=== PATIENT | female | born 1985 | race Caucasian/White ===

== ENCOUNTER 2019-04-19 11:02 | Emergency (ER) | payer OTHER ==
[2019-04-19 11:10] VITALS: BMI 34.9
--- NOTE | 2019-04-19 11:23 | PDOC ---
History of Present Illness - General History Source: Patient, Cleaning Matron Used (serbian int #[id number]) Exam Limitations: Clinical Condition - History of Present Illness Initial Comments: 04/19/19 11:50 Patient with past medical history of hypertension on nifedipine and left oophorectomy due to left ovarian cyst 5 years ago presented with complaint of right lower quadrant and epigastric pain which has been persistent since yesterday with a positive test. Patient reported LMP February 06 which put her 6 weeks . Denies vaginal bleeding, nausea, vomiting, dizziness , fever or chills. Patient did not take anything for symptoms. Denies any other symptoms Is this a multiple visit Asthma Patient?: No Timing/Duration: other (2 days) <Mikhail Richardson - Last Filed: 04/19/19 14:54> <Jeffry Cline - Last Filed: 04/19/19 16:29> - General Chief Complaint: Pain Stated Complaint: 6 WK PREG / ABD PAIN Time Seen by Provider: 04/19/19 11:15 Past History - Past Medical History COPD: No HTN: Yes - Psycho Social/Smoking Cessation Hx Smoking History: Never smoked <Mikhail Richardson - Last Filed: 04/19/19 14:54> <Jeffry Cline - Last Filed: 04/19/19 16:29> - Past Medical History Allergies/Adverse Reactions: Allergies Allergy/AdvReac Type Severity Reaction Status Date / Time No Known Allergies Allergy Verified 04/19/19 11:06 Home Medications: Ambulatory Orders Nifedipine [Procardia Xl] 30 mg PO DAILY 04/19/19 Prenat 115/Iron Fum/Folic/Dss [ 19 Tablet] 1 each PO DAILY 04/19/19 Review of Systems - Review of Systems Able to Perform ROS?: Yes Is the patient limited Czech proficient: No Constitutional: No: Fever, Malaise, Weakness HEENTM: No: Symptoms Reported, See HPI, Eye Pain, Blurred Vision, Tearing, Recent change in vision, Double Vision, Cataracts, Ear Pain, Ocular Prothesis, Ear Discharge, Nose Pain, Nose Congestion, Tinnitus, Nose Bleeding, Hearing Loss , Throat Pain, Throat Swelling, Mouth Pain, Dental Problems, Difficulty Swallowing, Mouth Swelling, Other Respiratory: No: Symptoms reported, See HPI, Cough, Orthopnea, Shortness of Breath, SOB with Exertion, SOB at Rest, Stridor, Wheezing, Productive cough, Hemoptysis, Other Cardiac (ROS): No: Symptoms Reported, See HPI, Chest Pain, Edema, Irregular Heart Rate, Lightheadedness, Palpitations, Syncope, Chest Tightness, Other ABD/GI: Yes: Symptoms Reported, See HPI, Abdominal cramping (RUQ/RLQ/ epigastric tenderness). No: Abdominal Distended, Abd. Pain w/ defecation, Blood Streaked Bowels, Constipated, Difficulty Swallowing, Nausea, Poor Appetite , Poor Fluid Intake, Rectal Bleeding, Vomiting, Indigestion : No: Burning, Dysuria, Discharge, Frequency, Flank Pain, Pain, Urgency Musculoskeletal: No: Symptoms Reported Integumentary: No: Symptoms Reported Neurological: No: Symptoms reported, Dizziness All Other Systems: Reviewed and Negative <Mikhail Richardson - Last Filed: 04/19/19 14:54> *Physical Exam - Vital Signs Last Vital Signs Temp Pulse Resp BP Pulse Ox 98.5 F 106 H 18 124/78 100 04/19/19 11:06 04/19/19 11:06 04/19/19 11:06 04/19/19 11:06 04/19/19 11:06 - Physical Exam General Appearance: Yes: Nourished, Appropriately Dressed. No: Apparent Distress HEENT: positive: HARIS, Normal ENT Inspection Neck: positive: Supple Respiratory/Chest: positive: Lungs Clear, Normal Breath Sounds. negative: Chest Tender, Respiratory Distress, Accessory Muscle Use Cardiovascular: positive: Regular Rhythm, Regular Rate Female Pelvic Exam: positive: normal external exam, cervical os closed, normal adnexa, discharge, other (small amount of yellow non-malodorous discharge in vaginal vault. no blood in vault). negative: lesions, adnexal tenderness, vaginal bleeding Gastrointestinal/Abdominal: positive: Normal Bowel Sounds, Tender (mild ttp to RLQ, right pelvic area and epigastric areas), Flat, Soft. negative: Organomegaly, Distended, Guarding, Rebound, Hernia, Mass, Hepatomegaly, Spleenomegaly Musculoskeletal: positive: Normal Inspection. negative: CVA Tenderness Extremity: positive: Normal Inspection, Normal Range of Motion Integumentary: positive: Normal Color Neurologic: positive: Fully Oriented, Alert, Normal Mood/Affect, Normal Response <Mikhail Richardson - Last Filed: 04/19/19 14:54> - Vital Signs Last Vital Signs Temp Pulse Resp BP Pulse Ox 98.2 F 88 19 122/78 98 04/19/19 15:02 04/19/19 15:02 04/19/19 15:02 04/19/19 15:02 04/19/19 15:02 <Jeffry Cline - Last Filed: 04/19/19 16:29> ED Treatment Course - LABORATORY CBC & Chemistry Diagram: 04/19/19 11:34 04/19/19 11:34 <DebraMikhail - Last Filed: 04/19/19 14:54> - LABORATORY CBC & Chemistry Diagram: 04/19/19 11:34 04/19/19 11:34 - ADDITIONAL ORDERS Additional order review: Laboratory Results 04/19/19 04/19/19 04/19/19 13:25 11:34 11:34 Sodium Potassium Chloride Carbon Dioxide Anion Gap BUN Creatinine Est GFR (CKD-EPI)AfAm Est GFR (CKD-EPI)NonAf Random Glucose Calcium Total Bilirubin AST ALT Alkaline Phosphatase Total Protein Albumin Lipase 86 Beta HCG, Quant Urine Color Yellow Urine Appearance Clear Urine pH >= 9.0 H Ur Specific Atkins 1.020 Urine Protein Trace Urine Glucose (UA) Negative Urine Ketones Negative Urine Blood Negative Urine Nitrite Negative Urine Bilirubin Negative Urine Urobilinogen 0.2 Ur Leukocyte Esterase Negative Blood Type O POSITIVE Antibody Screen Negative 04/19/19 04/19/19 11:34 11:34 Sodium 136 Potassium 4.0 Chloride 105 Carbon Dioxide 24 Anion Gap 7 L BUN 3.6 L Creatinine 0.6 Est GFR (CKD-EPI)AfAm 139.78 Est GFR (CKD-EPI)NonAf 120.61 Random Glucose 118 H Calcium 8.9 Total Bilirubin 0.3 AST 16 ALT 19 Alkaline Phosphatase 59 Total Protein 6.8 Albumin 3.6 Lipase Beta HCG, Quant 91681.1 Urine Color Urine Appearance Urine pH Ur Specific Atkins Urine Protein Urine Glucose (UA) Urine Ketones Urine Blood Urine Nitrite Urine Bilirubin Urine Urobilinogen Ur Leukocyte Esterase Blood Type Antibody Screen 04/19/19 12:00 Gram Stain - Final Cervix 04/19/19 11:34 RBC 4.17 MCV 92.2 MCHC 33.5 RDW 13.6 MPV 9.3 Neutrophils % 74.3 Lymphocytes % 18.9 Monocytes % 6.1 Eosinophils % 0.3 Basophils % 0.4 - Medications Given in the ED: ED Medications Discontinued Medications Generic Name Dose Route Start Last Admin Trade Name Jalen PRN Reason Stop Dose Admin Acetaminophen 1,000 mg 04/19/19 14:07 04/19/19 14:25 Ofirmev Injection - IVPB 04/19/19 14:08 1,000 mg ONCE ONE Administration Sodium Chloride 1,000 mls @ 1,000 mls/hr 04/19/19 12:57 04/19/19 13:50 Normal Saline - IV 04/19/19 13:56 1,000 mls/hr ASDIR STA Administration <Jeffry Cline - Last Filed: 04/19/19 16:29> Medical Decision Making - Medical Decision Making 04/19/19 11:52 Patient with past medical history of hypertension on nifedipine and left oophorectomy due to left ovarian cyst 5 years ago presented with complaint of right lower quadrant and epigastric pain which has been persistent since yesterday with a positive test. Patient reported LMP February 06 which put her 6 weeks . Denies vaginal bleeding, nausea, vomiting, dizziness , fever or chills. Patient did not take anything for symptoms. Denies any other symptoms. Exam significant for mild tenderness to epigastric and right lower quadrant region without guarding or rebound. Small amount of yellow non-malodorous discharge in vaginal vault with no cervical motion tenderness. No vaginal bleeding or blood in vaginal vault. Cervical os closed. Symptoms likely cramping from versus ectopic versus appendectomy. CBC, CMP, lipase and beta-hCG labs ordered. UA urine culture lab ordered. Pelvic ultrasound ordered to rule out ectopic . Abdominal ultrasound ordered to rule appendicitis. genital Cx of vaginal d/c sent. Treat based on lab and imaging results 04/19/19 12:43 Beta-hCG is 43,000. Chemistry lab are unremarkable. CBC with no significant pathology. Patient pending abdominal ultrasound 04/19/19 13:26 Transvaginal ultrasound shows IUP with crown-rump length of 0.57 cm consistent with 6.3 weeks gestational age, no heart rate seen on ultrasound. Ultrasound results consistent with demise. Abdominal ultrasound still pending reading 04/19/19 14:54 Abdominal ultrasound shows no appendicitis. Ultrasound result discussed with patient and advised of failed . Patient advised to follow-up with OB in 48 hours for repeat beta-hCG or come back to emergency room for repeat blood work. Plan discussed with patient via chief technology officer. Patient voiced understanding of plan and will follow-up with her OB. Patient stable for discharge <Mikhail Richardson - Last Filed: 04/19/19 14:54> - Medical Decision Making 04/19/19 16:28 I reviewed the case of the mid-level practitioner and was available for consultation while in the emergency department <MarlynJeffry - Last Filed: 04/19/19 16:29> Discharge - Discharge Information Problems reviewed: Yes - Admission No <Mikhail Richardson - Last Filed: 04/19/19 14:54> <Jeffry Cline - Last Filed: 04/19/19 16:29> - Discharge Information Clinical Impression/Diagnosis: Missed with demise before 20 completed weeks of gestation Condition: Stable Disposition: HOME - Follow up/Referral Referrals: Johnny Skelton MD [Primary Care Provider] - - Patient Discharge Instructions Additional Instructions: Your labwork was normal. Your transvaginal ultrasound shows intrauterine of 6 weeks but no heart rate was seen on ultrasound as discussed. Follow-up with your OB in 2-3 days for repeat hormones as discussed to follow-up with . no appendicitis on ultrasound. Take Tylenol as needed for pain. Come back to ER for repeat bloodwork if unable to follow-up with your [facility]. Tu trabajo de laboratorio fue normal. Centeno ultrasonido transvaginal muestra un embarazo intrauterino de 6 semanas, silvino no se observ frecuencia cardaca en el ultrasonido [place] se discuti. Fox un seguimiento con centeno OB en 2-3 mclean para repetir las hormonas del embarazo [place] se discuti para el seguimiento con el embarazo. sin apendicitis en la ecografa. Dryden Tylenol segn sea necesario para el dolor. Regrese a la domenica de emergencias para repetir los anlisis de criselda si no puede hacer un seguimiento con centeno obstetra / gineclogo.
[2019-04-19 11:51] LABS: BASO % 0.4 % (0-2.0); EOS % 0.3 % (0-4.5); HEMATOCRIT 38.4 % (32.4-45.2); HEMOGLOBIN 12.9 GM/dL (10.7-15.3); LYMPH % 18.9 % (8-40); MCH 30.9 pg (25.7-33.7); MCHC 33.5 g/dl (32.0-36.0); MEAN CELL VOLUME 92.2 fl (80-96); MEAN PLT VOLUME 9.3 fl (7.5-11.1); MONO % 6.1 % (3.8-10.2); NEUT % 74.3 % (42.8-82.8); PLATELET COUNT 230 K/MM3 (134-434); RBC 4.17 M/mm3 (3.60-5.2); RDW 13.6 % (11.6-15.6); WHITE BLOOD COUNT 11.7 K/mm3 (4.0-10.0)
[2019-04-19 12:20] LABS: ALBUMIN 3.6 g/dl (3.4-5.0); BILIRUBIN,TOTAL 0.3 mg/dL (0.2-1); BLOOD UREA NITROGEN 3.6 mg/dL (7-18); CALCIUM 8.9 mg/dL (8.5-10.1); CREATININE 0.6 mg/dL (0.55-1.3); TOT PROT 6.8 g/dl (6.4-8.2)
[2019-04-19] MEDS ORDERED: SODIUM CHLORIDE 1,000 ML IV STA (12:57)
[2019-04-19 13:48] LABS: PH,URINE >= 9.0 (5.0-8.0); URINE APPEARANCE CLEAR; URINE BILIRUBIN NEGATIVE (NEGATIVE); URINE COLOR YELLOW; URINE GLUCOSE (UA) NEGATIVE (NEGATIVE); URINE KETONE NEGATIVE (NEGATIVE); URINE LEUK ESTERASE NEGATIVE (NEGATIVE); URINE NITRITE NEGATIVE (NEGATIVE); URINE PROTEIN TRACE (NEGATIVE); URINE UROBILINOGEN 0.2 mg/dL (0.2-1.0)
[2019-04-19] MEDS ORDERED: ACETAMINOPHEN 1000 MG/100 ML VIAL (NON FORMULARY) IVPB ONE (14:07)
[2019-04-19] MEDS ORDERED: ACETAMINOPHEN INJECTION 100 ML IVPB ONE (14:26)
[2019-04-19 15:04] VITALS: BP 122/78; PULSE 88; TEMP 98.2
== END 2019-04-19 15:04 | disposition home or self-care (01) ==
LOC: JER 11:02
PROC: 3E0337Z Introduction of Electrolytic and Water Balance Substance into Peripheral Vein, Percutaneous Approach (ICD-10-PCS; principal; 2019-04-19)
PROC: 3E033NZ Introduction of Analgesics, Hypnotics, Sedatives into Peripheral Vein, Percutaneous Approach (ICD-10-PCS; 2019-04-19)
DX: O26.891 Other specified pregnancy related conditions, first trimester (principal); O02.1 Missed abortion; O10.911 Unspecified pre-existing hypertension complicating pregnancy, first trimester; Z3A.01 Less than 8 weeks gestation of pregnancy
CPT/HCPCS: 36415; 76817-TC; 76856-TC; 80053; 81003; 83690; 84702; 85025; 86850; 86900; 86901; 87070; 87086; 87205; 96361; 96374; 99284-25; J0131; J7030

== ENCOUNTER 2020-08-26 01:48 | Emergency (ER) | payer OTHER ==
[2020-08-26 02:17] VITALS: BP 156/90; PULSE 92; TEMP 98.4; BMI 32.3
[2020-08-26] MEDS ORDERED: MAG HYDROX/AL HYDROX/SIMETH 30 ML UNIT-DOSE CUP PO ONE (02:23)
[2020-08-26] MEDS ORDERED: FAMOTIDINE 20 MG/50 ML IVPB 20 MG/50 ML MG IVPB ONE ×2 (02:23→02:55)
[2020-08-26] MEDS ORDERED: MAG HYDROX/AL HYDROX/SIMETH 30 ML UNIT-DOSE CUP ONE (02:55)
[2020-08-26 02:58] LABS: BASO % 0.6 % (0-2.0); EOS % 0.5 % (0-4.5); HEMATOCRIT 44.6 % (32.4-45.2); HEMOGLOBIN 14.7 GM/dL (10.7-15.3); LYMPH % 31.1 % (8-40); MCH 30.7 pg (25.7-33.7); MCHC 32.9 g/dl (32.0-36.0); MEAN CELL VOLUME 93.1 fl (80-96); MEAN PLT VOLUME 10.5 fl (7.5-11.1); NEUT % 56.8 % (42.8-82.8); PLATELET COUNT 168 K/MM3 (134-434); RBC 4.79 M/mm3 (3.60-5.2); RDW 13.5 % (11.6-15.6); WHITE BLOOD COUNT 6.3 K/mm3 (4.0-10.0)
[2020-08-26 03:09] LABS: PROTHROMBIN TIME (PATIENT) 12.3 SEC (9.7-13.0)
[2020-08-26 03:11] LABS: ACTIVATED PTT 38.7 SECONDS (25.2-36.5)
[2020-08-26 03:17] LABS: CHLORIDE 107 mmol/L (98-107); POTASSIUM 4.4 mmol/L (3.5-5.1); SODIUM 140 mmol/L (136-145)
[2020-08-26 03:19] LABS: CALCIUM 8.5 mg/dL (8.5-10.1)
[2020-08-26 03:20] LABS: ALBUMIN 4.1 g/dl (3.4-5.0); ANION GAP 5 MMOL/L (8-16); BLOOD UREA NITROGEN 6.6 mg/dL (7-18); CO2 28 mmol/L (21-32); GLUCOSE,RANDOM 108 mg/dL (74-106)
[2020-08-26 03:23] LABS: CREATININE 0.6 mg/dL (0.55-1.3); SGOT/AST 25 U/L (15-37); SGPT/ALT 40 U/L (13-61)
[2020-08-26 03:24] LABS: BILIRUBIN,TOTAL 0.3 mg/dL (0.2-1); TOT PROT 7.5 g/dl (6.4-8.2)
[2020-08-26 03:26] LABS: ALK PHOS 70 U/L (45-117)
== END 2020-08-26 05:05 | disposition home or self-care (01) ==
LOC: JER 01:48
PROC: 3E033NZ Introduction of Analgesics, Hypnotics, Sedatives into Peripheral Vein, Percutaneous Approach (ICD-10-PCS; principal; 2020-08-26)
DX: R07.89 Other chest pain (principal)
CPT/HCPCS: 36415; 71045-TC-FY; 80053; 83690; 84484; 85025; 85379; 85610; 85730; 93005; 93010; 99285-25

== ENCOUNTER 2020-12-14 13:27 | Emergency (ER) | payer OTHER ==
[2020-12-14 13:44] VITALS: BP 136/77; PULSE 88; TEMP 98; BMI 33.1
[2020-12-14] MEDS ORDERED: KETOROLAC TROMETHAMINE 30 MG/1 ML VIAL IM ONE (14:11)
[2020-12-14] MEDS ORDERED: KETOROLAC TROMETHAMINE 30 MG/1 ML VIAL ONE (14:12)
== END 2020-12-14 14:24 | disposition home or self-care (01) ==
LOC: JER 13:27 → JERFT 13:27
PROC: 3E0233Z Introduction of Anti-inflammatory into Muscle, Percutaneous Approach (ICD-10-PCS; principal; 2020-12-14)
DX: S76.011A Strain of muscle, fascia and tendon of right hip, initial encounter (principal)
CPT/HCPCS: 99284-25

== ENCOUNTER 2021-02-10 14:32 | Emergency (ER) | payer OTHER ==
[2021-02-10 14:48] VITALS: BP 119/81; PULSE 99; TEMP 98; BMI 31.6
== END 2021-02-10 15:35 | disposition home or self-care (01) ==
LOC: JER 14:32 → JERFT 14:32
DX: H11.31 Conjunctival hemorrhage, right eye (principal)
CPT/HCPCS: 99282-25

== ENCOUNTER 2021-03-02 20:33 | Emergency (ER) | payer OTHER ==
[2021-03-02 21:38] VITALS: BP 148/95; PULSE 93; TEMP 98.5; BMI 32.3
[2021-03-02 22:51] LABS: BASO % 0.3 % (0-2.0); EOS % 0.4 % (0-4.5); HEMATOCRIT 37.7 % (32.4-45.2); HEMOGLOBIN 12.8 GM/dL (10.7-15.3); LYMPH % 19.9 % (8-40); MCH 30.7 pg (25.7-33.7); MCHC 33.8 g/dl (32.0-36.0); MEAN CELL VOLUME 90.8 fl (80-96); MEAN PLT VOLUME 9.3 fl (7.5-11.1); MONO % 8.3 % (3.8-10.2); NEUT % 71.1 % (42.8-82.8); PLATELET COUNT 211 10^3/uL (134-434); RBC 4.15 M/mm3 (3.60-5.2); RDW 13.1 % (11.6-15.6); WHITE BLOOD COUNT 11.8 K/mm3 (4.0-10.0)
[2021-03-02 22:53] LABS: URINE APPEARANCE CLEAR; URINE BILIRUBIN NEGATIVE (NEGATIVE); URINE COLOR YELLOW; URINE GLUCOSE (UA) NEGATIVE (NEGATIVE); URINE KETONE NEGATIVE (NEGATIVE); URINE LEUK ESTERASE NEGATIVE (NEGATIVE); URINE NITRITE NEGATIVE (NEGATIVE); URINE PROTEIN NEGATIVE (NEGATIVE); URINE UROBILINOGEN 0.2 mg/dL (0.2-1.0)
[2021-03-02 23:11] LABS: BLOOD UREA NITROGEN 8.2 mg/dL (7-18); CALCIUM 8.6 mg/dL (8.5-10.1)
[2021-03-02 23:15] LABS: CREATININE 0.7 mg/dL (0.55-1.3)
== END 2021-03-03 02:20 | disposition home or self-care (01) ==
LOC: JER 20:33
DX: O26.851 Spotting complicating pregnancy, first trimester (principal); O02.0 Blighted ovum and nonhydatidiform mole; Z3A.01 Less than 8 weeks gestation of pregnancy
CPT/HCPCS: 36415; 76817-TC; 80048; 81003; 84702; 85025; 99284-25

== ENCOUNTER 2021-11-29 13:56 | Emergency (ER) | payer OTHER ==
[2021-11-29 14:26] VITALS: TEMP 98.6; BMI 32.3
[2021-11-29 16:41] LABS: HCG,QUALITATIVE URINE Positive
[2021-11-29 16:42] LABS: PH,URINE 8.5 (5.0-8.0); URINE APPEARANCE CLEAR; URINE BILIRUBIN NEGATIVE (NEGATIVE); URINE COLOR YELLOW; URINE GLUCOSE (UA) NEGATIVE (NEGATIVE); URINE KETONE NEGATIVE (NEGATIVE); URINE LEUK ESTERASE NEGATIVE (NEGATIVE); URINE NITRITE NEGATIVE (NEGATIVE); URINE PROTEIN NEGATIVE (NEGATIVE); URINE UROBILINOGEN 0.2 mg/dL (0.2-1.0)
[2021-11-29] MEDS ORDERED: ACETAMINOPHEN 325 MG TABLET (FP) PO ONE (16:42)
[2021-11-29] MEDS ORDERED: ACETAMINOPHEN 325 MG TABLET (FP) ONE (17:06)
[2021-11-29 17:50] LABS: BASO % 0.2 % (0-2.0); HEMATOCRIT 40.4 % (32.4-45.2); HEMOGLOBIN 13.3 GM/dL (10.7-15.3); LYMPH % 4.3 % (8-40); MCH 30.2 pg (25.7-33.7); MCHC 32.8 g/dl (32.0-36.0); MEAN CELL VOLUME 92.1 fl (80-96); MEAN PLT VOLUME 9.2 fl (7.5-11.1); MONO % 7.7 % (3.8-10.2); NEUT % 87.8 % (42.8-82.8); PLATELET COUNT 228 10^3/uL (134-434); RBC 4.39 M/mm3 (3.60-5.2); RDW 13.1 % (11.6-15.6); WHITE BLOOD COUNT 13.2 K/mm3 (4.0-10.0)
[2021-11-29 18:10] LABS: ALBUMIN 4.2 g/dl (3.4-5.0); BLOOD UREA NITROGEN 5.8 mg/dL (7-18); CALCIUM 8.9 mg/dL (8.5-10.1)
[2021-11-29 18:13] LABS: CREATININE 0.6 mg/dL (0.55-1.3)
[2021-11-29 18:15] LABS: BILIRUBIN,TOTAL 0.4 mg/dL (0.2-1); TOT PROT 7.6 g/dl (6.4-8.2)
[2021-11-29 21:02] VITALS: BP 120/79; PULSE 76
== END 2021-11-29 21:01 | disposition home or self-care (01) ==
LOC: JERFT 13:56
DX: R10.30 Lower abdominal pain, unspecified (principal)
CPT/HCPCS: 36415; 76817-TC; 80053; 81003; 84702; 84703; 85025; 86850; 86900; 86901; 87070; 87077; 87086; 87205; 99284-25

== ENCOUNTER 2021-11-30 18:50 | Emergency (ER) | payer OTHER ==
[2021-11-30 19:10] VITALS: TEMP 98.1; BMI 33.7
[2021-12-01 07:40] VITALS: BP 123/78; PULSE 90
== END 2021-12-01 01:35 | disposition home or self-care (01) ==
LOC: JER 18:50
DX: O26.899 Other specified pregnancy related conditions, unspecified trimester (principal); R10.84 Generalized abdominal pain; Z3A.00 Weeks of gestation of pregnancy not specified
CPT/HCPCS: 36415; 76817-TC; 84702; 99284-25

== ENCOUNTER 2022-05-29 13:23 | Emergency (ER) | payer OTHER ==
[2022-05-29 13:43] VITALS: BMI 22.4
[2022-05-29 15:55] LABS: BASO % 0.3 % (0-2.0); EOS % 0.2 % (0-4.5); HEMATOCRIT 40.7 % (32.4-45.2); HEMOGLOBIN 13.3 GM/dL (10.7-15.3); LYMPH % 23.7 % (8-40); MCHC 32.5 g/dl (32.0-36.0); MEAN CELL VOLUME 92.1 fl (80-96); MEAN PLT VOLUME 9.2 fl (7.5-11.1); MONO % 6.6 % (3.8-10.2); NEUT % 69.2 % (42.8-82.8); PLATELET COUNT 267 10^3/uL (134-434); RBC 4.42 M/mm3 (3.60-5.2); WHITE BLOOD COUNT 12.6 K/mm3 (4.0-10.0)
[2022-05-29 16:17] LABS: CALCIUM 9.1 mg/dL (8.5-10.1)
[2022-05-29 16:19] LABS: ALBUMIN 3.9 g/dl (3.4-5.0); BLOOD UREA NITROGEN 6.3 mg/dL (7-18)
[2022-05-29 16:22] LABS: CREATININE 0.6 mg/dL (0.55-1.3)
[2022-05-29 16:23] LABS: BILIRUBIN,TOTAL 0.4 mg/dL (0.2-1); TOT PROT 7.1 g/dl (6.4-8.2)
[2022-05-29 16:52] VITALS: BP 148/67; PULSE 83; RESP 16; TEMP 98
== END 2022-05-29 17:30 | disposition home or self-care (01) ==
LOC: JER 13:23
DX: Z34.90 Encounter for supervision of normal pregnancy, unspecified, unspecified trimester (principal)
CPT/HCPCS: 36415; 76817-TC; 80053; 84702; 84703; 85025; 99284-25